=== PATIENT | female | born 1970 | race African-American/Black ===

== ENCOUNTER 2018-01-26 02:10 | Emergency (ER) | payer MEDICAID, OTHER ==
[~2018-01-26] VITALS: Ht 167.6 cm; Wt 82.0 kg
[~2018-01-26 02:10] MED LIST: albuterol inh; depakote
[2018-01-26] MEDS ORDERED: METHYLPREDNISOLONE SOD SUCC 125 MG/2 ML VIAL IV STA (02:57)
[2018-01-26] MEDS ORDERED: IPRATROPIUM BROMIDE (0.02%) 0.5MG/2.5ML NEB HHN STA (02:57)
[2018-01-26] MEDS ORDERED: ALBUTEROL (0.083%) 2.5MG/3ML NEB HHN STA (02:57)
[2018-01-26] MEDS ORDERED: KETOROLAC 30MG/ML VIAL IV ONE (03:00)
[2018-01-26] MEDS ORDERED: LIDOCAINE 5% PATCH TOP SCH (03:00)
[2018-01-26 03:42] LABS: CLARITY URINE CLEAR (CLEAR); COLOR URINE YELLOW (YELLOW); KETONES URINE NEGATIVE (NEGATIVE); LEUKOCYTE ESTERASE URINE NEGATIVE (NEGATIVE); NITRITE URINE NEGATIVE (NEGATIVE); OCCULT BLOOD URINE TRACE (NEGATIVE); PH URINE 5.5 (4.5-8.0); PROTEIN URINE NEGATIVE (NEGATIVE); SPECIFIC GRAVITY URINE 1.017 (1.005-1.030); UROBILINOGEN URINE 0.2 E.U./dL (0.2-1.0)
[2018-01-26 05:11] VITALS: BP 123/79
== END 2018-01-26 05:20 | disposition home or self-care (01) ==
LOC: ER 02:10
DX: J45.901 Unspecified asthma with (acute) exacerbation (principal); G89.29 Other chronic pain; M54.9 Dorsalgia, unspecified; Z76.5 Malingerer [conscious simulation]
CPT/HCPCS: 81003; 81025; 94640; 96374; 96375; 99284; J1885; J2930; J7611; Z7610

== ENCOUNTER 2018-03-08 18:13 | Emergency (ER) | payer MEDICAID ==
[~2018-03-08] VITALS: Ht 167.6 cm; Wt 82.0 kg
[2018-03-09] MEDS ORDERED: HYDROCODONE/ACETAMINOPHEN 5/325MG TABLET PO ONE (01:00)
[2018-03-09] MEDS ORDERED: KETOROLAC 30MG/ML VIAL IM ONE (01:45)
[2018-03-09 02:06] VITALS: BP 124/74
== END 2018-03-09 02:43 | disposition home or self-care (01) ==
LOC: ER 18:37
DX: M54.5 Low back pain (principal); G89.29 Other chronic pain; J45.909 Unspecified asthma, uncomplicated; V43.52XA Car driver injured in collision with other type car in traffic accident, initial encounter; Y93.89 Activity, other specified; Y99.8 Other external cause status; Y92.410 Unspecified street and highway as the place of occurrence of the external cause
CPT/HCPCS: 72100; 81025; 96372; 99284; J1885; Z7610

== ENCOUNTER 2018-04-05 12:52 | Emergency (ER) | payer MEDICAID ==
[~2018-04-05] VITALS: Ht 167.6 cm; Wt 84.0 kg
[2018-04-05] MEDS ORDERED: KETOROLAC 60MG/2ML VIAL IM ONE (16:00)
[2018-04-05] MEDS ORDERED: HYDROCODONE/ACETAMINOPHEN 5/325MG TABLET PO ONE (17:15)
[2018-04-05 18:22] VITALS: BP 126/58
== END 2018-04-05 18:22 | disposition home or self-care (01) ==
LOC: ER 14:48
DX: M25.551 Pain in right hip (principal); J45.909 Unspecified asthma, uncomplicated; V89.2XXA Person injured in unspecified motor-vehicle accident, traffic, initial encounter; Y93.89 Activity, other specified; Y99.8 Other external cause status; Y92.410 Unspecified street and highway as the place of occurrence of the external cause; Z88.6 Allergy status to analgesic agent
CPT/HCPCS: 96372; 99283; J1885

== ENCOUNTER 2018-05-13 23:18 | Emergency (ER) | payer MEDICAID ==
[~2018-05-13] VITALS: Ht 167.6 cm; Wt 82.0 kg
[2018-05-13 23:22] VITALS: BP 113/61
== END 2018-05-14 02:42 | disposition left against medical advice (07) ==
LOC: ER 05-14 02:11
DX: R07.89 Other chest pain (principal); Z53.21 Procedure and treatment not carried out due to patient leaving prior to being seen by health care provider
CPT/HCPCS: 93005

== ENCOUNTER 2018-05-28 03:38 | Emergency (ER) | payer MEDICAID ==
[~2018-05-28] VITALS: Ht 167.6 cm; Wt 79.0 kg
[2018-05-28] MEDS ORDERED: PREDNISONE 20MG TABLET PO STA (04:29)
[2018-05-28] MEDS ORDERED: IPRATROPIUM BROMIDE (0.02%) 0.5MG/2.5ML NEB HHN STA (04:29)
[2018-05-28] MEDS ORDERED: ALBUTEROL (0.083%) 2.5MG/3ML NEB HHN STA (04:29)
[2018-05-28] MEDS ORDERED: KETOROLAC 30MG/ML VIAL IM ONE (04:30)
[2018-05-28 06:07] VITALS: BP 118/68
== END 2018-05-28 13:45 | disposition home or self-care (01) ==
LOC: ER 03:39
DX: J45.909 Unspecified asthma, uncomplicated (principal); M54.9 Dorsalgia, unspecified
CPT/HCPCS: 94640; 96372; 99283; J1885; J7512; J7611

== ENCOUNTER 2018-11-23 09:40 | Emergency (ER) | payer MEDICAID ==
[~2018-11-23] VITALS: Ht 167.6 cm; Wt 55.0 kg
[2018-11-23] MEDS ORDERED: KETOROLAC 30MG/ML VIAL IV STA (10:10)
[2018-11-23] MEDS ORDERED: ONDANSETRON HCL 4MG/2ML INJ IV STA (10:10)
[2018-11-23] MEDS ORDERED: SODIUM CHLORIDE 0.9% 1,000 ML IV ONE (10:10)
[2018-11-23 11:15] LABS: HEMOGLOBIN. 15.4 g/dL (12.0-16.0); MEAN CORPUSCULAR HEMOGLOBIN 28.5 pg (28.0-32.0); MEAN PLATELET VOLUME 9.9 fl (7.4-10.4); PLATELET 218 x1000/uL (130-400); RED BLOOD CELL COUNT 5.42 mill/uL (4.2-5.4); RED CELL DISTRIBUTION WIDTH 14.5 % (11.6-14.6)
[2018-11-23 11:22] LABS: CHLORIDE 107 mEq/L (98-107)
[2018-11-23 12:12] LABS: PLATELET ESTIMATE NNN
[2018-11-23 12:18] LABS: CLARITY URINE CLEAR (CLEAR); COLOR URINE YELLOW (YELLOW); KETONES URINE TRACE (NEGATIVE); LEUKOCYTE ESTERASE URINE NEGATIVE (NEGATIVE); NITRITE URINE NEGATIVE (NEGATIVE); OCCULT BLOOD URINE 1+ (NEGATIVE); PH URINE >=9.0 (4.5-8.0); PROTEIN URINE TRACE (NEGATIVE); SPECIFIC GRAVITY URINE 1.017 (1.005-1.030); UROBILINOGEN URINE 0.2 E.U./dL (0.2-1.0)
[2018-11-23] MEDS ORDERED: HYDROCODONE/ACETAMINOPHEN 5/325MG TABLET PO ONE (14:30)
[2018-11-23 14:42] VITALS: BP 141/76
== END 2018-11-23 15:16 | disposition home or self-care (01) ==
LOC: ER 09:40
DX: R10.30 Lower abdominal pain, unspecified (principal); R11.2 Nausea with vomiting, unspecified; J45.909 Unspecified asthma, uncomplicated
CPT/HCPCS: 36415; 74176; 80053; 81003; 81025; 83690; 85025; 96361; 96374; 96375; 99284; J1885; J2405; J7030

== ENCOUNTER 2020-07-14 00:38 | Emergency (ER) | payer MEDICAID ==
[~2020-07-14] VITALS: Ht 167.6 cm; Wt 82.0 kg
[2020-07-14] MEDS ORDERED: KETOROLAC 30MG/ML VIAL IM ONE (05:15)
[2020-07-14] MEDS ORDERED: HYDROCODONE/ACETAMINOPHEN 5/325MG TABLET PO ONE (06:15)
[2020-07-14 07:20] VITALS: BP 128/73
== END 2020-07-14 07:24 | disposition home or self-care (01) ==
LOC: ER 00:38
DX: M54.5 Low back pain (principal); J45.909 Unspecified asthma, uncomplicated; R00.0 Tachycardia, unspecified; Z88.6 Allergy status to analgesic agent
CPT/HCPCS: 72100; 81025; 93005; 99285

== ENCOUNTER 2024-04-07 13:26 | Emergency (ER) | payer MEDICAID, OTHER ==
[~2024-04-07] VITALS: Ht 157.5 cm; Wt 64.0 kg
[2024-04-07 13:49] VITALS: BP 144/66; PULSE 65; RESP 16; TEMP 98.1; O2SAT 98
[2024-04-07 14:18] LABS: CLARITY URINE CLOUDY (CLEAR); COLOR URINE YELLOW (YELLOW); GLUCOSE URINE NEGATIVE (NEGATIVE); KETONES URINE NEGATIVE (NEGATIVE); LEUKOCYTE ESTERASE URINE 2+ (NEGATIVE); NITRITE URINE NEGATIVE (NEGATIVE); OCCULT BLOOD URINE 1+ (NEGATIVE); PROTEIN URINE NEGATIVE (NEGATIVE); SPECIFIC GRAVITY URINE 1.019 (1.005-1.030)
[2024-04-07 14:37] LABS: SQUAMOUS EPITHELIAL CELL URINE FEW /lpf (RARE/1+)
[2024-04-07 14:38] LABS: BACTERIA URINE 1+; WBC URINE TNTC /hpf (0-2)
[2024-04-07] MEDS ORDERED: SULF1TAB48 MT (14:47)
[2024-04-07 14:57] LABS: HCG SCREEN NEGATIVE
== END 2024-04-07 18:44 | disposition home or self-care (01) ==
LOC: ER 13:26
DX: N39.0 Urinary tract infection, site not specified (principal); J45.909 Unspecified asthma, uncomplicated
CPT/HCPCS: 81003; 81025; 84703; 87077; 87186; 99283